=== PATIENT | male | born 1975 | race Caucasian/White ===

== ENCOUNTER 2016-12-04 03:48 | Emergency (ER) | payer SELFPAY ==
[~2016-12-04 03:48] MED LIST: ERYTHROMYCIN1 GM OP; TOBRADEX EYE DRO5 M1 RIGHT EYE
[2016-12-04] MEDS ORDERED: CLEOCIN HCL300 M1 PO (04:17)
[2016-12-04] MEDS ORDERED: KEFLEX500 M4 PO (04:17)
== END 2016-12-04 04:25 ==
LOC: EDMED 03:48
DX: L03.116 Cellulitis of left lower limb (principal); L03.115 Cellulitis of right lower limb; Z88.2 Allergy status to sulfonamides; F17.210 Nicotine dependence, cigarettes, uncomplicated